=== PATIENT | female | born 1960 | race Two or more races ===

== ENCOUNTER 2024-07-20 09:49 | Emergency (ER) | payer OTHER ==
[~2024-07-20] VITALS: Ht 157.5 cm; Wt 63.5 kg
[~2024-07-20 09:49] MED LIST: ACETAMINOPHEN650 M2 PO; MEDROLPACK PO; NORFLEX100MG PO
[2024-07-20] MEDS ORDERED: DIPHENHYDRAMINE HCL 50 MG/ML VIAL 1ML IM STA (11:12)
[2024-07-20] MEDS ORDERED: DIPHENHYDRAMINE HCL 50 MG/ML VIAL 1ML ONE (12:03)
[2024-07-20 12:33] LABS: HEMATOCRIT 40.8 % (36.0-45.00); HEMOGLOBIN 13.2 g/dL (12.0-15.00); MEAN CELL VOLUME 78.8 fL (80.00-100.00); MEAN CORPUSCULAR HEMOGLOBIN 25.5 pg (27.00-32.0); MEAN CORPUSCULAR HGB CONC 32.3 g/dl (32.0-36.0); PLATELET COUNT 238 K/uL (150-450); RED BLOOD COUNT 5.17 M/uL (4.00-6.00); RED CELL DISTRIBUTION WIDTH 14.1 % (11.5-14.5)
[2024-07-20 12:35] LABS: ERYTHROCYTE SEDIMENTATION RATE 23 mm/hr
== END 2024-07-20 13:41 | disposition home or self-care (01) ==
LOC: ER 09:51
PROVIDERS: General Practice
DX: R21 Rash and other nonspecific skin eruption (principal); L29.9 Pruritus, unspecified; Z91.09 Other allergy status, other than to drugs and biological substances